=== PATIENT | female | born 1990 | race Caucasian/White ===

== ENCOUNTER → 2024-07-02 09:21 | Outpatient (CLI) | payer OTHER, SELFPAY ==
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
== END ==
LOC: RAD 09:25
PROVIDERS: PCP Nurse Practitioner Family; Referring Provider Nurse Practitioner Family; Visit Provider Nurse Practitioner Family
DX: M54.9 Dorsalgia, unspecified (principal)
CPT/HCPCS: 72040; 72072